=== PATIENT | female | born 1985 | race Caucasian/White ===

== ENCOUNTER 2016-09-09 05:32 | Inpatient (IN) | payer BC ==
[2016-09-09] VITALS (9 sets, daily range): BP systolic 113–129; BP diastolic 65–73; PULSE 70–93; RESP 16–18; TEMP 97.5–97.9; O2SAT 97–100
[~2016-09-09] VITALS: Ht 156.2 cm; Wt 80.0 kg
[~2016-09-09 05:32] MED LIST: ACET-62 PO; DIPH25CA84 PO; PREN1TAB53 PO; RANI150T12 PO
--- OUTSIDE RECORDS SUMMARY | 2016-09-09 05:37 | XMS REPORT | Continuity of Care Document ---
Author Author [facility] Organization [facility] Address Unknown Phone Unavailable Support Name Relationship Address Phone LY SPENCER DO Caregiver [address] [place] [address] Unavailable JAM TAO MD Caregiver Unknown Unavailable JAM TAO MD Caregiver Unknown Unavailable JAIMIE MCCLAIN Next Of Kin [address] [place] [address] Insurance Providers Guarantor Josy Jay Address [address] [place] [address] Email [email or web address] [employer] Other Policy Number [id number] Subscriber's Name Jono,Mayur Nanda Relationship 01 Spouse Group Number [id number] Advance Directives Directive Response Recorded Date/Time Advanced Directives Type None 12/15/13 6:35am Dr Ordered Resuscitation Status Full Code 11/29/13 2:32pm Resuscitation Documents on File No 07/18/16 2:56pm DPOA for Healthcare Only No 07/18/16 2:56pm Living Will No 07/18/16 2:56pm Problems Active Problems Medical Problem Onset Date Status delivery delivered 12/17/2013 Acute Medications Current Home Medications Medication Dose Units Route Directions Days Qty Instructions Start Date Acetaminophen 500 Mg Tablet 1 Tab Oral Every 6 Hours 60 Tablet Ferrous Sulfate (Iron) 325 ( Tablet 324 Mg Oral 1 Tablet 11/29/13 Vits W-Ca,Fe,Fa(<1MG) () 1 Tab Tablet 1 Tab Oral Daily 11/29/13 Ranitidine Hcl (Zantac) 150 Mg Tablet 150 Mg Oral Daily for Acid Reflux 07/16/16 Past Home Medications Medication Directions Ordered Status Diphenhydramine Hcl (Benadryl) 25 Mg Capsule, 1 Cap Oral Every 6 Hours Discontinued Ondansetron Hcl (Zofran) 4 Mg Tablet, 4 Mg Oral As Needed 12/14/13 Discontinued Social History Social History Problem Response Recorded Date/Time Onset Date Status Reason for Hospitalization pyleonephritis 07/20/2016 11:13am Not Applicable Not Applicable Hx Substance Use No 12/15/2013 6:36am Not Applicable Not Applicable Hx Alcohol Use No 12/14/2013 1:47pm Not Applicable Not Applicable Has the pt used tobacco in the last 12 months No 07/18/2016 2:58pm Not Applicable Not Applicable Query Response Start Date Stop Date Smoking Status Never smoker Hospital Discharge Instructions Instructions: Care Instructions: Reason for Hospitalization: pyleonephritis I was in the hospital because (patient own words): pain stomach to back, nausea, fatigue, headache. Discharge Diet: regular Discharge Activity: regular Follow Up Appointments: Thursday w/ [facility]TN Please call [facility] on Thursday to schedule follow up appt with Dr. Tao Pending Lab / Results: Will review at f/u apt Wound/Incision Care: n/a Pain Management/Treatment: tylenol if needed Expected Signs/Symptoms: n/a Notify Physician If: fever or pain return During Business Hours:: Please call the physician's office at [phone] After Business Hours:: Please call [phone] and have the jig mill operator page the physician. Condition at time of discharge: Good Plan of Care Discharge Date 07/20/16 12:10pm Disposition 01 DISCHARGED HOME, SELF-CARE Instructions/Education Provided Kidney Infection (DC) Prescriptions See Medication Section Care Plan and Goals See Discharge Instructions Section Functional Status Query Response Date Recorded Mobility Status Ambulatory July 20, 2016 11:13am Assistive Devices None July 20, 2016 11:13am Activity Limitations None July 20, 2016 11:13am Feeding Ability Independent July 20, 2016 11:13am Toileting Ability Independent July 20, 2016 11:13am Grooming Ability Independent July 20, 2016 11:13am Dressing Ability Independent July 20, 2016 11:13am Driving Ability Independent July 20, 2016 11:13am Housework Ability Independent July 20, 2016 11:13am Meal Preparation Ability Independent July 20, 2016 11:13am Stair Climbing Ability Independent July 20, 2016 11:13am Ability to complete ADL's impeded by No change July 20, 2016 11:13am Cognitive/Perceptual Impairments None July 20, 2016 11:13am Allergies, Adverse Reactions, Alerts Allergen Type Severity Reaction Status Last Updated Codeine Allergy Unknown SOA,NYPOTENSION Active 07/18/16 Cinnamon Allergy Severe SWELLING Active 07/18/16 Immunizations Query Response on File Recorded Date/Time Hx Influenza Vaccination No 07/18/16 2:58pm Hx Pneumococcal Vaccination No 07/18/16 2:58pm Hx Influenza Vaccination No 07/18/16 2:58pm Vital Signs Acute Vital Signs Vital Response Date/Time Temperature (Fahrenheit) 97.7 deg F (96.8 - 99.1) 07/20/2016 9:00am Temperature (Calculated Celsius) 36.13990 degrees C (36.0 - 37.3) 07/20/2016 9:00am Pulse Rate (adult) 78 bpm (60 - 100) 07/20/2016 9:00am Respiratory Rate 16 breaths/min (10 - 20) 07/20/2016 9:00am O2 Sat by Pulse Oximetry 99 % (90 - 100) 07/20/2016 9:00am Oxygen Delivery Method Room Air 07/20/2016 9:00am Blood Pressure 95/55 mm Hg 07/20/2016 9:00am Blood Pressure Source Automatic Cuff 07/20/2016 9:00am Height (Feet) 5 feet 07/18/2016 2:55pm Height (Inches) 2.00 inches 07/18/2016 2:55pm Weight (Kilograms) 76.300 kg 07/18/2016 3:08pm Body Mass Index (BMI) 30.8 07/18/2016 2:55pm Results Laboratory Results Test Name Result Units Flags Reference Collection Date/Time Result Date/ Time Comments Urine Collection Type CLEANC[place]-MIDSTREAM 07/16/2016 1:54pm 2016 1:58pm Urine Color YELLOW YELLOW 07/16/2016 1:54pm 07/16/2016 1:58pm Urine Turbidity SL CLOUDY CLEAR 07/16/2016 1:54pm 07/16/2016 1:58pm Urine Specific [place] 1.020 1.015-1.025 07/16/2016 1:54pm 2016 1:58pm Urine pH 7.0 5.0-8.0 07/16/2016 1:54pm 07/16/2016 1:58pm Urine Leukocyte Esterase TRACE A NEGATIVE 07/16/2016 1:54pm 2016 1:58pm Urine Nitrite NEGATIVE NEGATIVE 07/16/2016 1:54pm 07/16/2016 1:58pm Urine Protein TRACE A NEGATIVE 07/16/2016 1:54pm 07/16/2016 1:58pm Urine Glucose (UA) TRACE A NEGATIVE 07/16/2016 1:54pm 07/16/2016 1: 58pm Urine Ketones NEGATIVE NEGATIVE 07/16/2016 1:54pm 07/16/2016 1:58pm Urine Urobilinogen 0.2 EU/DL NORMAL 07/16/2016 1:54pm 07/16/2016 1: 58pm Urine Bilirubin NEGATIVE NEGATIVE 07/16/2016 1:54pm 07/16/2016 1: 58pm Urine Blood NEGATIVE NEGATIVE 07/16/2016 1:54pm 07/16/2016 1:58pm Urinalysis Comment MICROSCOPIC NOT IND. 07/16/2016 1:54pm 2016 1:58pm White Blood Count 10.0 T/MM3 4.5-11.0 07/18/2016 2:34pm 07/18/2016 3: 06pm Red Blood Count 3.54 M/MM3 L 4.00-5.20 07/18/2016 2:34pm 07/18/2016 3: 06pm Hemoglobin 10.2 GM/DL L 12-16 07/18/2016 2:34pm 07/18/2016 3:06pm Hematocrit 30.8 % L 36-46 07/18/2016 2:34pm 07/18/2016 3:06pm Mean Corpuscular Volume 87.0 UM3 80-100 07/18/2016 2:34pm 07/18/2016 3: 06pm Mean Corpuscular Hemoglobin 28.8 UUG 26-34 07/18/2016 2:34pm 2016 3:06pm Mean Corpuscular Hemoglobin Concent 33.1 GM/DL 31-37 07/18/2016 2:34pm 07/18/2016 3:06pm RDW Standard Deviation 41.3 FL 36.9-50.2 07/18/2016 2:34pm 07/18/2016 3 :06pm Platelet Count 227 T/MM3 130-400 07/18/2016 2:34pm 07/18/2016 3:06pm Mean Platelet Volume 9.7 UM3 9.4-12.4 07/18/2016 2:07/18/2016 3: 06pm Neutrophils (%) (Auto) 79.4 % H 33-66 07/18/2016 2:07/18/2016 3: 06pm Lymphocytes (%) (Auto) 13.3 % L 23-45 07/18/2016 2:07/18/2016 3: 06pm Monocytes (%) (Auto) 4.9 % 0-9.0 07/18/2016 2:07/18/2016 3:06pm Eosinophils (%) (Auto) 1.4 % 0-4 07/18/2016 2:3407/18/2016 3:06pm Basophils (%) (Auto) 0.2 % 0-2 07/18/2016 2:07/18/2016 3:06pm Immature Granulocyte % (Auto) 0.8 % H 0.0-0.5 07/18/2016 2:2016 3:06pm Absolute Neutrophils (auto) 8.0 T/MM3 H 1.8-7.7 07/18/2016 2:2016 3:06pm Absolute Lymphocytes (auto) 1.3 T/MM3 1-4.8 07/18/2016 2:2016 3:06pm Absolute Monocytes (auto) 0.5 T/MM3 0-0.8 07/18/2016 2:07/18/2016 3:06pm Absolute Eosinophils (auto) 0.1 T/MM3 0-0.5 07/18/2016 2:2016 3:06pm Absolute Basophils (auto) 0.0 T/MM3 0-0.2 07/18/2016 2:07/18/2016 3:06pm Absolute Immature Granulocyte (auto 0.08 T/MM3 H 0.00-0.03 07/18/2016 2: 07/18/2016 3:06pm Icterus Index < 2 0-7 07/18/2016 2:07/18/2016 3:18pm Chemistry Specimen Hemolysis 21 0-25 07/18/2016 2:07/18/2016 3: 18pm 0-25: Specimen Exhibited No Hemolysis. Turbidity < 20 0-20 07/18/2016 2:07/18/2016 3:18pm Sodium Level 134 MEQ/L 134-144 07/18/2016 2:34pm 07/18/2016 3:18pm Potassium Level 3.8 MEQ/L 3.6-5 07/18/2016 2:34pm 07/18/2016 3:18pm Chloride Level 105 MEQ/L 98-107 07/18/2016 2:34pm 07/18/2016 3:18pm Carbon Dioxide Level 21 MEQ/L L 22-30 07/18/2016 2:34pm 07/18/2016 3: 18pm Anion Gap 8 MEQ/L 5-15 07/18/2016 2:34pm 07/18/2016 3:18pm Blood Urea Nitrogen 9.0 MG/DL 7-17 07/18/2016 2:34pm 07/18/2016 3:18pm Creatinine 0.4 MG/DL L 0.7-1.2 07/18/2016 2:34pm 07/18/2016 3:18pm BUN/Creatinine Ratio 23 RATIO 6-07/18/2016 2:34pm 07/18/2016 3:18pm Glomerular Filtration Rate Calc 187 07/18/2016 2:34pm 07/18/2016 3: 18pm Glucose Level 97 MG/DL 65-110 07/18/2016 2:34pm 07/18/2016 3:18pm Calculated Osmolality 257 MOSM/KG L 261-280 07/18/2016 2:34pm 2016 3:18pm Calcium Level 8.5 MG/DL 8.4-10.2 07/18/2016 2:34pm 07/18/2016 3:18pm Procedures Procedure Status Date Provider(s) non-stress test Completed 07/16/16 Urinalysis auto w/o scope Completed 07/16/16 Encounters Encounter Location Arrival/Admit Date Discharge/Depart Date Attending Provider Discharged Inpatient [facility] 07/19/16 4:07pm 07/20/16 12:10pm JAM TAO MD Departed Clinic [facility] 07/16/16 1:20pm 07/16/16 2:35pm JAM TAO MD
[2016-09-09] MEDS ORDERED: LR 1,000 ML IV PRN (05:51)
[2016-09-09] MEDS ORDERED: NOZIN NASAL SWAB NS ONE ×2 (06:00→08:00)
[2016-09-09] MEDS ORDERED: CLINDAMYCIN 900mg IVPB 50 ML IV ONE (06:00)
[2016-09-09] MEDS ORDERED: FAMOTIDINE 20mg IVPB 50 ML IV ONE (06:00)
[2016-09-09] MEDS ORDERED: CITRIC ACID/SODIUM CITRATE 30 ML PO ONE (06:00)
[2016-09-09] MEDS ORDERED: LIDOCAINE 1% (10mg/ml) 2ml SDV ID PRN (06:00)
[2016-09-09 06:21] LABS: BASOPHILS % (AUTO) 0.2 % (0-2); EOSINOPHILS # (AUTO) 0.1 T/MM3 (0-0.5); EOSINOPHILS % (AUTO) 1.3 % (0-4); HCT - HEMATOCRIT 32.3 % (36-46); HGB - HEMOGLOBIN 10.6 GM/DL (12-16); IMMATURE GRANULOCYTE # (AUTO) 0.07 T/MM3 (0.00-0.03); IMMATURE GRANULOCYTE % (AUTO) 0.7 % (0.0-0.5); LYMPHOCYTES # (AUTO) 1.8 T/MM3 (1-4.8); LYMPHOCYTES % (AUTO) 18.9 % (23-45); MEAN CORPUSCULAR HGB 27.5 UUG (26-34); MEAN CORPUSCULAR HGB CONC(MCHC 32.8 GM/DL (31-37); MEAN CORPUSCULAR VOLUME 83.7 UM3 (80-100); MEAN PLATELET VOLUME 9.8 UM3 (9.4-12.4); MONOCYTES # (AUTO) 0.5 T/MM3 (0-0.8); MONOCYTES % (AUTO) 5.7 % (0-9.0); NEUTROPHILS #(AUTO)-ABSOLUTE 6.8 T/MM3 (1.8-7.7); NEUTROPHILS % (AUTO) 73.2 % (33-66); RED BLOOD COUNT 3.86 M/MM3 (4.00-5.20); WBC - WHITE BLOOD COUNT 9.4 T/MM3 (4.5-11.0)
[2016-09-09] MEDS ORDERED: D5W IV SCH ×2 (06:45)
[2016-09-09] MEDS ORDERED: CEFAZOLIN IV SCH ×2 (06:45)
--- NOTE | 2016-09-09 06:49 | ANESOB ---
Epidural/ Date/Time DATE: 09/09/16 TIME: 06:47 Preop Diagnosis Procedure: Plan: Spinal Height: 5 ' 1.50 " Weight: 80.000 kg BMI: kg/m2 Blood Pressure: 129/73 Heart Rate: 93 Respiratory Rate: 16 SaO2: 98 NPO since: Midnight P:3 Medications & Allergies Inpatient Medications Current Medications Medications (Trade) Dose Ordered Sig/Monica Start Time Stop Time Status Last Admin Dose Admin Lactated Ringer's (Lactated Ringers) 1,000 ml @ 150 mls/hr Q6H40M PRN 09/09/16 05:51 09/09/16 06:25 150 MLS/HR Lidocaine HCl (Xylocaine 1%) 0.2 mg PRN PRN 09/09/16 06:00 Acetaminophen (Acetaminophen) 500 Mg Tablet, 1 TAB PO Q6H, (Reported) Diphenhydramine HCl (Benadryl) 25 Mg Capsule, 1 CAP PO HS, (Reported) Last Taken: on 09/07/16 230 Vits W-Ca,Fe,Fa(<1MG) () 1 Tab Tablet, 1 TAB PO DAILY, (Reported) Last Taken: on 09/08/16 230 Ranitidine HCl (Zantac) 150 Mg Tablet, 150 MG PO HS, (Reported) Last Taken: on 09/08/162299 Coded Allergies: cinnamon (Verified Allergy, Severe, SWELLING, 09/09/16) codeine (Verified Allergy, Unknown, SOA,NYPOTENSION, 09/09/16) Medical/Surgical History Anesthesia PMH: Reports: Asthma, , Reflux, Denies: *Angina, *Diabetes , *Dyspnea, *Hypertension, *[place], Anesthesia Reactions, Arthritis, Bld Transfusion Reaction, CHF, COPD, CVA/Stroke/TIA, Cancer, Clotting Problems, Glaucoma, Hepatitis, Hiatal Hernia, Malignant Hyperthermia, Pneumonia, Renal Disease, Seizures, Sleep Apnea, Thyroid Disease, Tuberculosis Smoking Status: Never smoker Does patient use chewing tobac: No Second Hand Exposure: No Substance Use Type: does not use Alcohol Intake: none Anesthesia Adverse Reactions: FOUND none Family Hx of Anesthesia Advers: none Hx of Motion Sickness: No Complications During : No Pertinent Findings Laboratory Tests 09/09/16 06:12 EKG Rhythm: Sinus Rhythm Physical Exam Respiratory: Lungs clear Cardiovascular: Regular rate, rhythm Airway Assessment Mallampati Score: II TMD: 3 Fingerbreadths Neck Extension: Good Overall Assessment: May Be Diff Intubation ASA: 2 Discussion Discussed risks/options/alternatives of anesthesia. Patient consents. Nursing pain assessment noted. Present for Discussion: Present: Spouse Attestation Statement Prior to the delivery of any anesthetic medication, I examined the patient, developed the plan, obtained the patient's consent and discussed the risk and benefits of the procedure with the patient/guardian. If the note happens to be signed after anesthesia start time, it is only due to providing efficient care of the patient and documenting at a time when the computer is available. MEENA CÁRDENAS ELECTRIC DEICER ASSEMBLER Sep 09, 2016 06:49
[2016-09-09] MEDS ORDERED: PHENYLEPHRINE 10mg/ml INJECTION ONE (07:00)
[2016-09-09] MEDS ORDERED: MORPHINE SULFATE PF 5mg/10ml VL (DURAMORPH) ONE (07:01)
[2016-09-09] MEDS ORDERED: SALINE FLUSH 10ml SYRINGE ONE (07:32)
[2016-09-09] MEDS ORDERED: FENTANYL 100mcg/2ml INJECTION ONE (08:11)
[2016-09-09] MEDS ORDERED: NALOXONE 0.4mg/ml INJECTION IV PRN (08:30)
[2016-09-09] MEDS ORDERED: ONDANSETRON 4mg/2ml INJECTION IV PRN (08:30)
[2016-09-09] MEDS ORDERED: DiphenhydrAMINE 50 MG/ML INJECTION IV PRN (08:30)
[2016-09-09] MEDS ORDERED: METOCLOPRAMIDE 10mg/2ml INJECTION IV PRN (08:30)
[2016-09-09] MEDS ORDERED: NALBUPHINE 10mg/ml INJECTION IV PRN (08:30)
[2016-09-09] MEDS ORDERED: OXYTOCIN 30 UNIT in D5LR 500 ML IV SCH (10:19)
[2016-09-09] MEDS ORDERED: CALCIUM CARBONATE 500mg Chewable TAB PO PRN (10:30)
[2016-09-09] MEDS ORDERED: HYDROCORTISONE 2.5% CREAM 30 GM RECTALLY PRN (10:30)
[2016-09-09] MEDS ORDERED: MILK OF MAGNESIA 30 ML SUSP PO PRN (10:30)
[2016-09-09] MEDS: D5LR 1,000 ML IV SCH ×2 (10:36→20:19)
--- NOTE | 2016-09-09 11:11 | OPNOTEPD ---
Operative Note Date of Operation Date of Operation: 09/09/16 General : 6 Para: 3 Gestation (Weeks): 39 Gestation (Days): 0 Preoperative Diagnosis Previous section, Desires sterilization Postoperative Diagnosis Same as preoperative dx Procedure Repeat, Low-transverse , Tubal Ligation ([place]) Surgeon Queenie Tao MD [employer] Hand Finisher Henna Rossi MD Anesthesia Anesthesia Provider: Osito Herman CRNA Anesthesia Type: spinal Complications No Complications: No complications Estimated Blood Loss 600 cc Findings viable male, clear fluids, normal uterus, normal adenexa APGARS [place] Weight 3558 grams [place] Name Josette Diaz Indications Scheduled repeat C/S at term gestation for prior C/S x3, desires permanent sterilization Description of Procedure The patient was taken to the operating room where adequate anesthesia as described above was obtained. A Pfannenstiel skin incision was made and carried down to the fascia with the scalpel. The fascia was incised and the rectus muscles in the midline. The peritoneum was entered and incised superiorly and inferiorly taking care to avoid the bowel and bladder. A bladder blade was inserted and a bladder flap was created. A low transverse uterine incision was made as described above and the was delivered in the cephalic position. Mouth and nares were bulb suctioned, the cord was clamped and cut, and the infant was handed to the pocket builder. The placenta was delivered and the uterine cavity examined. The uterine incision (no extensions) was closed in a running-lock fashion with #0-monocryl suture. Attention was then turned to the left fallopian tube which was grasped with a Florien clamp. The midsegment was grasped, a hemostat placed through an avascular portion of the mesosalpinx, the jaws opened to separate mesosalpinx from tubal segment to be resected, and two #1 chromic ties were brought through the resulting defect. A 4 cm segment of tube was then doubly ligated and resected with the resulting specimen sent to Pathology. Hemostasis was confirmed. A similar procedure was performed on the other fallopian tube, resecting a 3 cm segment. The uterine incision was re-examined and noted to be hemostatic. The peritoneal layer was then reapproximated with 2-0 vicryl. The fascia was closed with 0-vicryl suture and the subcutaneous tissue was reapproximated with 2-0 vicryl suture. The skin was closed with 4-0 vicryl in subcuticular fashion and a sterile dressing was applied. The patient taken to the recovery room in satisfactory condition. Needle, sponge, and instrument counts were correct. QUEENIE TAO MD Sep 09, 2016 11:10
[2016-09-09] MEDS: SIMETHICONE 80 MG CHEWABLE TABLET PO CHEW SCH ×3 (13:00→22:00)
--- NOTE | 2016-09-09 15:15 | NUR ---
Care Assumed/Activity Report from Ascencion Lord RN. Care assumed. Pt resting in bed. VSS and assessment WNL. Pt reports severe generalized itching and would like medication for it. Dangled at bedside. Has some mild dizziness, but otherwise tolerated well. Rating pain 4/10 in lower abdomen. Tylenol and Motrin given. H2O refilled. Discussed POC with pt. Encouraged activity tonight. Pt agrees. Denies further needs at this time.
[2016-09-09] MEDS: IBUPROFEN 800 MG TABLET PO PRN (15:58)
[2016-09-09] MEDS: ACETAMINOPHEN 500 MG TABLET PO PRN ×2 (15:58→20:52)
--- NOTE | 2016-09-09 20:45 | NUR ---
Status Pt continues to report severe itching. Rating pain 3/10. Would like tylenol if available. Tylenol and Nubain given. Encouraged pt to continue to drink fluids, and attempt to void soon. Pt verbalizes understanding. at bedside. Pt requests that SCDs not be put back on in case she needs to get up to BR. RN agrees but encouraged pt to continue moving legs and getting up frequently. Pt verbalizes understanding. Denies further needs.
[2016-09-10] MEDS: IBUPROFEN 800 MG TABLET PO PRN ×3 (00:02→18:09)
--- NOTE | 2016-09-10 00:14 | NUR ---
Activity/Voiding Pt up to BR on own. Voided 400 ml. Pt doing well with self cares. Ambulates without dizziness. Tolerating PO food and fluids. Ibuprofen given as scheduled. Pt rating pain 6/10 in lower abdomen. Sitting up nursing at this time. Denies further needs. Encouraged to rest and call PRN.
--- NOTE | 2016-09-10 00:24 | NUR ---
Chart Check 24 hour chart check completed
[2016-09-10] MEDS: ACETAMINOPHEN 500 MG TABLET PO PRN ×4 (04:24→22:07)
[2016-09-10 04:28] VITALS: BP 102/65; PULSE 81; RESP 16; TEMP 98.2; O2SAT 97
[2016-09-10 05:17] LABS: HCT - HEMATOCRIT 27.5 % (36-46); MEAN CORPUSCULAR HGB 27.7 UUG (26-34); MEAN CORPUSCULAR HGB CONC(MCHC 32.7 GM/DL (31-37); MEAN CORPUSCULAR VOLUME 84.6 UM3 (80-100); MEAN PLATELET VOLUME 9.8 UM3 (9.4-12.4); RED BLOOD COUNT 3.25 M/MM3 (4.00-5.20); WBC - WHITE BLOOD COUNT 8.6 T/MM3 (4.5-11.0)
[2016-09-10 08:21] VITALS: BP 123/78; PULSE 81; RESP 16; TEMP 98.2; O2SAT 96
--- NOTE | 2016-09-10 08:38 | PNPDOC ---
Progress Note PPD1 Rubella: Immune GBS: Negative Blood Type:B neg Subjective 09/10/16 Lochia: Minimal Pain: Controlled Voiding: Voiding Nausea and Vomiting: No Nausea/Vomiting Objective Vital Signs Date Time Temp Pulse Resp B/P Pulse Ox O2 Delivery O2 Flow Rate FiO2 09/10/16 08:21 98.2 81 16 123/78 96 Room Air General: Alert and Oriented Abdomen: Fundus Firm, Non-tender, Non-distended Incision: Clean/Dry/Intact, No Erythema Extremities: Non-tender Edema: None Laboratory Item Value Date Time Hemoglobin 10.6 GM/DL L 09/09/16 0612 Hemoglobin 9.0 GM/DL L # 09/10/16 0457 Assessment SP, Repeat C/S, Tubal Ligation, Anemia (acute on chronic) Plan Routine Care, Continue PNV JAM TAO MD Sep 10, 2016 08:38
[2016-09-10] MEDS: DOCUSATE CALCIUM 240 MG CAPSULE PO SCH (09:06)
[2016-09-10] MEDS: SIMETHICONE 80 MG CHEWABLE TABLET PO CHEW SCH ×4 (09:06→22:07)
--- NOTE | 2016-09-10 10:30 | NUR ---
Rh FACTOR CONSULT: Mother Blood Type = B neg Child Blood Type = AB pos Hgb / Adult Ratio = 0.0010 Will give Rho D Immunoglobulin 300mcg IV x 1 dose. Thank you, Kelly Causey RPh
[2016-09-10] MEDS ORDERED: RHO IMMUNE GLOBULIN IV ONE (10:45)
[2016-09-10 12:27] VITALS: BP 126/70; PULSE 94; RESP 15; TEMP 97.8; O2SAT 97
--- NOTE | 2016-09-10 15:12 | NUR ---
SHIFT SUMMARY VSS. FIRM FUNDUS -2, MINIMAL LOCHIA. PAIN CONTROLLED WITH TYLENOL 500-1000MG AND IBUPROFEN 800MG. RHOGAM GIVEN. IV D/C'D. ABDOMINAL BINDER. SHOWERED, PERFORMS SELF CARES. WELL X2. BABY ROOMED IN WITH PARENTS, PROVIDED ALL CARES FOR .
[2016-09-10] MEDS: TRAMADOL 50 MG TABLET PO PRN ×2 (15:18→22:07)
[2016-09-10 15:41] VITALS: BP 115/71; PULSE 89; RESP 16; TEMP 97.6; O2SAT 98
--- NOTE | 2016-09-10 20:05 | NUR ---
ambulation patient out ambulating in halls, pushing in crib. patient denies needs or complaints. will continue to monitor and educate.
[2016-09-10 20:25] VITALS: BP 124/77; PULSE 101; RESP 16; TEMP 96.3; O2SAT 99
[2016-09-10 23:50] VITALS: BP 125/71; PULSE 82; RESP 16; TEMP 97.5; O2SAT 98
--- NOTE | 2016-09-11 00:23 | NUR ---
Chart Check 24 hour chart check completed
[2016-09-11] MEDS: IBUPROFEN 800 MG TABLET PO PRN (03:04)
[2016-09-11 03:05] VITALS: BP 124/74; PULSE 75; RESP 16; TEMP 97.6; O2SAT 98
--- NOTE | 2016-09-11 03:47 | NUR ---
shift summary VSS, fundus firm, lochia scant, steri strips intact. patient performing all cares for self and infant. patient showered and ambulated in halls x2. tylenol, ultram and ibuprofen administered for pain. patient reports pain controlled with medications. no further changes in status noted. will continue to monitor.
[2016-09-11] MEDS: DOCUSATE CALCIUM 240 MG CAPSULE PO SCH (07:30)
[2016-09-11] MEDS: SIMETHICONE 80 MG CHEWABLE TABLET PO CHEW SCH (07:30)
[2016-09-11] MEDS: ACETAMINOPHEN 500 MG TABLET PO PRN (07:31)
[2016-09-11 07:37] VITALS: BP 116/69; PULSE 75; RESP 16; TEMP 97.9; O2SAT 97
--- NOTE | 2016-09-11 08:26 | PNPDOC ---
Progress Note PPD2 Rubella: Immune GBS: Negative Blood Type:B neg Subjective 09/11/16 Lochia: Minimal Pain: Controlled Voiding: Voiding Nausea and Vomiting: No Nausea/Vomiting Objective Vital Signs Date Time Temp Pulse Resp B/P Pulse Ox O2 Delivery O2 Flow Rate FiO2 09/11/16 07:37 97.9 75 16 116/69 97 Room Air General: Alert and Oriented Abdomen: Fundus Firm, Non-tender Incision: Clean/Dry/Intact, No Erythema Edema: None Assessment SP, Repeat C/S, Tubal Ligation, Anemia Plan Routine Care, Discharge Home, Continue PNV JAM TAO MD Sep 11, 2016 08:26
[2016-09-11] MEDS ORDERED: IBUP-1547 PO (08:30)
[2016-09-11] MEDS ORDERED: DOCU-168 PO (08:30)
[2016-09-11] MEDS ORDERED: TRAM50TA4 PO (08:30)
--- NOTE | 2016-09-11 10:00 | NUR ---
CM THIS WORKER MET WITH PT ON THIS DATE. THIS WORKER INTRODUCED SELF AND ROLE OF CASE MANAGEMENT. MOTHER REPORTED THAT SHE IS A STAY AT HOME MOTHER. HAS FAMILY SUPPORT FROM EXTENDED FAMILY IF NEEDED. HAS THREE OTHER CHILDREN AT HOME. DENIES NEEDS FOR BABY. ON HIS WAY TO THE HOSPITAL TO TRANSPORT THEM HOME. THIS WORKER PROVIDED CONTACT INFORMATION FOR PT AND ENCOURAGED TO CONTACT THIS WORKER WITH ANY NEEDS.
--- NOTE | 2016-09-11 10:30 | NUR ---
Dismissal Dismissal instructions reviewed with patient. Verbalizes understanding. Will schedule appointment with Dr. Garces after she is able to consult 's schedule. Has paper Rx for Ibuprofen, Tramadol and stool softeners. Pain controlled. Ready for dismissal.
--- NOTE | 2016-09-15 16:34 | NUR ---
FOLLOW UP ATTEMPT LEFT MESSAGE ON THIS DATE.
== END 2016-09-11 10:30 | disposition home or self-care (01) | DRG 765 ==
LOC: MC 05:32
PROVIDERS: ADMIT Obstetrics & Gynecology; ATTEND Obstetrics & Gynecology
PROC: 0UB70ZZ Excision of Bilateral Fallopian Tubes, Open Approach (ICD-10-PCS; 2016-09-09)
PROC: 10D00Z1 Extraction of Products of Conception, Low, Open Approach (ICD-10-PCS; principal; 2016-09-09 07:34)
DX: O34.211 Maternal care for low transverse scar from previous cesarean delivery (principal); O26.23 Pregnancy care for patient with recurrent pregnancy loss, third trimester; N85.8 Other specified noninflammatory disorders of uterus; Z30.2 Encounter for sterilization; O99.02 Anemia complicating childbirth; D50.8 Other iron deficiency anemias; D50.9 Iron deficiency anemia, unspecified; O09.03 Supervision of pregnancy with history of infertility, third trimester; Z3A.39 39 weeks gestation of pregnancy; Z37.0 Single live birth
CPT/HCPCS: 36415; 85025; 85027; 85460; 86850; 86870; 86900; 86901; 99464